=== PATIENT | female | born 1970 | race Caucasian/White ===

== ENCOUNTER 2020-04-17 19:06 | Emergency (ER) | payer OTHER ==
[~2020-04-17] VITALS: Ht 165.1 cm; Wt 104.3 kg
[2020-04-17 19:11] VITALS: BP 166/129
--- NOTE | 2020-04-17 19:19 | NUR ---
Pt taken to bed 12 via w/c.
--- NOTE | 2020-04-17 19:24 | NUR ---
PT 50 Y/O FEMALE BIB SELF FOR C/O L LEG PAIN S/P FALL. PT AAO X4. DENIES HITTING HEAD AND OR DIZZYNESS. PT STATES "I ALMOST DID THE SPLITS." PT STATES SHE FEELS CRAMPING IN MEDIAL L LEG/ GROIN AREA. PT ABLE TO AMBUALTE WITH ASSISTANCE. PT STATES TOOK TYLENOL 1 HOUR AGO WITH INEFFECTIVE RESULTS. PT BP: 166/109, ERMD MADE AWARE. PT STATES SHE HAS BEEN NON COMPLIANT WITH BP MEDICATIONS. PT POSITION IN BED FOR COMFORT. PT BED IS LOCKED AND IN LOWEST POSITION. MEDHX: HTN, ANEMIA ALLERGIES: NKA
--- NOTE | 2020-04-17 19:27 | NUR ---
ERMD AT BEDSIDE.
[2020-04-17] MEDS ORDERED: methocarbamoL 500 MG TAB PO STA (19:38)
[2020-04-17] MEDS ORDERED: HYDROcodone/APAP 5/325 MG 1 TAB TAB PO ONE (19:40)
--- NOTE | 2020-04-17 20:07 | NUR ---
PT STATES HER SON WILL BE PICKING HER UP FROM ER.
[2020-04-17 20:09] VITALS: BP 166/129
--- NOTE | 2020-04-17 20:09 | NUR ---
Patient discharged with v/s stable. Written and verbal after care instructions given and explained. Patient alert, oriented and verbalized understanding of instructions. Ambulatory with steady gait. All questions addressed prior to discharge. ID band removed. Patient advised to follow up with PMD. Rx of ROBAXIN AND MOTRIN given. Patient educated on indication of medication including possible reaction and side effects. Opportunity to ask questions provided and answered.
== END 2020-04-17 20:09 | disposition home or self-care (01) ==
LOC: MED 19:06
DX: S76.012A Strain of muscle, fascia and tendon of left hip, initial encounter (principal); I10 Essential (primary) hypertension; D64.9 Anemia, unspecified; W18.40XA Slipping, tripping and stumbling without falling, unspecified, initial encounter; Y93.89 Activity, other specified; Y92.89 Other specified places as the place of occurrence of the external cause; Y99.8 Other external cause status
CPT/HCPCS: 99283